=== PATIENT | male | born 1975 | race Hispanic/Latino ===

== ENCOUNTER 2019-01-26 09:11 | Emergency (ER) | payer OTHER | END 2019-01-26 09:37 | disposition home or self-care (01) | LOC: EDH 09:11 | DX: K64.0 First degree hemorrhoids (principal) ==

== ENCOUNTER 2023-01-17 11:08 | Emergency (ER) | payer OTHER ==
[~2023-01-17] VITALS: Ht 180.3 cm; Wt 108.9 kg
[2023-01-17] MEDS ORDERED: ONDANSETRON 4MG INJ IVP ONE (11:30)
[2023-01-17] MEDS ORDERED: 0.9%NACL 1000ML 1,000 ML IV ONE (11:30)
[2023-01-17 11:39] LABS: BASOPHILS % (AUTO) 0.4 % (0.0-5.0); EOSINOPHILS % (AUTO) 0.7 % (0.0-8.0); HEMATOCRIT 46.4 % (42-54); LYMPHOCYTES % (AUTO) 11.7 % (21.0-51.0); MEAN CORPUSCULAR HEMOGLOBIN 33.2 pg (27.0-33.0); MEAN CORPUSCULAR VOLUME 92.2 fL (79-99); MONOCYTES % (AUTO) 4.5 % (3.0-13.0); PLATELET COUNT (AUTO) 169 K/uL (130-400); RED BLOOD CELL COUNT(AUTO) 5.03 MIL/uL (4.50-6.20); RED CELL DISTRIBUTION WIDTH 12.3 % (11.0-15.5); WHITE BLOOD COUNT (AUTO) 13.6 K/uL (4.8-10.8)
[2023-01-17 11:47] LABS: CREATININE 0.9 mg/dL (0.5-1.5); POTASSIUM 4.1 mmol/L (3.5-5.1)
[2023-01-17 11:51] LABS: ALBUMIN 3.9 g/dL (3.5-5.0); APPEARANCE,URINE CLEAR (CLEAR); BILIRUBIN,URINE NEGATIVE (NEGATIVE); COLOR,URINE YELLOW (YELLOW); GLUCOSE, URINE (UA) >=1000 mg/dL (NEGATIVE); KETONES,URINE 10 mg/dL (NEGATIVE); LEUKOCYTE ESTERASE ,URINE 75 Leu/uL (NEGATIVE); NITRATE,URINE NEGATIVE (NEGATIVE); OCCULT BLOOD,URINE NEGATIVE (NEGATIVE); PROTEIN,URINE 50 mg/dL (NEGATIVE); TOTAL PROTEIN, SERUM 7.2 g/dL (6.0-8.3); UROBILINOGEN,URINE 0.2 mg/dL (0.2-1.0)
[2023-01-17 11:54] LABS: MUCUS,URINE RARE LPF (None Seen); SQUAMOUS EPITHELIAL CELL,UR RARE /HPF (0-2)
[2023-01-17] MEDS ORDERED: IOHEXOL-350 75 ML VIAL IV ONE (12:13)
[2023-01-17] MEDS ORDERED: UBID100C4 PO (12:17)
[2023-01-17] MEDS ORDERED: ROSU10TA28 PO (12:17)
[2023-01-17] MEDS ORDERED: GLIP10TA9 PO (12:17)
[2023-01-17] MEDS ORDERED: THIO300C PO (12:17)
[2023-01-17] MEDS ORDERED: SITA50TA PO (12:17)
== END 2023-01-17 14:25 | disposition home or self-care (01) ==
LOC: EDH 11:08
DX: R10.9 Unspecified abdominal pain (principal); R11.0 Nausea; R68.83 Chills (without fever); E11.9 Type 2 diabetes mellitus without complications; Z20.822 Contact with and (suspected) exposure to COVID-19; Z79.899 Other long term (current) drug therapy
CPT/HCPCS: 99284; 74177; 96374; 71045; 87635; 96361; 84484; 80053; 83690; 85025; 87088; 87880; 87804 ×2; 83605; 81001; 36415; 93005; C9803; J7030; J2405; Q9967

== ENCOUNTER 2024-12-04 12:04 | Emergency (ER) | payer OTHER ==
[~2024-12-04] VITALS: Ht 180.3 cm; Wt 117.9 kg
[~2024-12-04 12:04] MED LIST: GLIP10TA16 PO; ROSU10TA72 PO; SITA50TA PO; THIO300C PO; UBID100C4 PO
[2024-12-04 13:10] LABS: BASOPHILS # (AUTO) 0.04 K/uL (0.00-0.20); BASOPHILS % (AUTO) 0.6 % (0.0-5.0); EOSINOPHILS # (AUTO) 0.07 K/uL (0.00-0.70); HEMATOCRIT 44.3 % (42-54); IMMATURE GRANULOCYTE ABSOLUTE 0.03 K/uL (0-1); LYMPHOCYTES # (AUTO) 1.8 K/uL (1.0-4.8); LYMPHOCYTES % (AUTO) 25.2 % (21.0-51.0); MEAN CORPUSCULAR HGB CONC 36.3 g/dL (32.0-36.0); MEAN CORPUSCULAR VOLUME 93.5 fL (79-99); MONOCYTES # (AUTO) 0.4 K/uL (0.1-1.0); MONOCYTES % (AUTO) 5.7 % (3.0-13.0); NEUTROPHILS # (AUTO) 4.7 K/uL (1.8-7.7); NEUTROPHILS % (AUTO) 67.1 % (40.0-77.0); PLATELET COUNT (AUTO) 187 K/uL (130-400); RED BLOOD CELL COUNT(AUTO) 4.74 MIL/uL (4.50-6.20); RED CELL DISTRIBUTION WIDTH 12.1 % (11.0-15.5)
--- NOTE | 2024-12-04 13:17 | HMCIMG ---
CT HEAD WITHOUT CONTRAST INDICATION: Facial droop TECHNIQUE: Noncontrast axial helical CT images from the vertex through the skull base using 5 mm slice thickness without contrast material. CT was performed with one or more of the following dose reduction techniques: Automated exposure control, adjustment of the mA and/or kV according to patient size, or use of iterative reconstruction technique. COMPARISON: None FINDINGS: The cerebral and cerebellar hemispheres are age-appropriate in appearance. No evidence for abnormal extra-axial fluid collections or masses. The ventricles and sulci are normal in size and configuration. No evidence for intracranial parenchymal, epidural, or subdural hemorrhage, mass effect or midline shift. The gregorio-white matter differentiation is well preserved. No secondary evidence to suggest acute ischemia. The brainstem and cerebellum appear normal. The visualized orbits appear unremarkable. The visible paranasal sinuses and mastoid air cells are clear. The calvarium appears normal. IMPRESSION: No acute intracranial process identified.
[2024-12-04 13:19] LABS: CREATININE 1.1 mg/dL (0.5-1.3); POTASSIUM 3.7 mmol/L (3.5-5.1)
--- NOTE | 2024-12-04 13:55 | ERN ---
General Chief Complaint: Numbness Stated Complaint: NUMBNESS TO FACE,BLURRY VISION RT EYE Time Seen by MD: 12:10 Time Seen by Midlevel: 12:10 Source: patient History of Present Illness Initial Comments The patient is a 49-year-old male with a past medical history of type 2 diabetes presenting to the emergency department for evaluation of a right facial droop and right facial numbness that started on December 02, 2024 at approximately 5:00 p.m.. Patient states his symptoms initially started with a "strange taste" in his mouth. He was then unable to swish water inside his mouth. He noticed excessive tearing and blurred vision to the right eye. Today he reports an increase in facial droopiness so he decided to report to the ER for further evaluation. He denies any focal weakness to his upper extremities. He was still able to walk with a normal gait. Patient denies any other symptoms at this time. He does report being in the process of switching primary care doctors and has stopped taking his diabetes medication until he gets a 2nd opinion. Allergies: Coded Allergies: No Known Allergies (Unverified Allergy, Unknown, 01/26/19) Home Meds Active Scripts Acyclovir (Acyclovir) 800 Mg Tablet, 1 TAB PO 5XDAY for 7 Days, #35 TAB 0 Refills Prov:ABEL ROBERTS 12/04/24 Reported Medications Alpha Lipoic Acid (Alpha Lipoic Acid) 300 Mg Capsule, 300 MG PO DAILY, CAP 01/17/23 Ubidecarenone (Co Q10) 100 Mg Capsule, 100 MG PO DAILY, CAP 01/17/23 Rosuvastatin Calcium (Rosuvastatin Calcium) 10 Mg Tablet, 10 MG PO DAILY, TAB 01/17/23 Sitagliptin Phosphate (Januvia) 50 Mg Tablet, 50 MG PO DAILY, TAB 01/17/23 Glipizide (Glipizide) 10 Mg Tablet, 10 MG PO DAILY, TAB 01/17/23 Past Medical History Past Medical History: Diabetes-Type II Past Surgical History: None ROS Dictation CONSTITUTIONAL: Negative except for HPI HEAD/FACE: Negative except for HPI EENT: Negative except for HPI RESPIRATORY: Negative except for HPI GASTROINTESTINAL/ABDOMINAL: Negative except for HPI GENITOURINARY: Negative except for HPI MUSCULOSKELETAL: Negative except for HPI INTEGUMENTARY: Negative except for HPI NEUROLOGICAL/PSYCH: Negative except for HPI HEMATOLOGIC/LYMPHATIC: Negative except for HPI All Systems Negative, Except as noted above. 13 point review of systems assessed and all negative except for above. Physical Exam Physical Exam Dictation Vital Signs reviewed General Appearance: Alert, oriented x 3, no acute distress, well developed, nourished. Head and Face: non-traumatic. Eyes: PERRL, pink conjunctivas, eyelid no trauma, anterior chamber with arcus senilis. Ears: Pinnas intact and no signs of trauma or erythema ear canals clear and no discharge TM no erythema Nose: No discharge, no bleeding. Oropharynx: Mouth normal, tongue pink, pharynx clear,no erythema, tonsils no exudates, no abscesses noted, mucous membrane moist Neck: Supple, non-tender, no thyromegaly, no masses, no JVD, no bruits Breast:Deferred Chest:No tenderness, no crepitus, no paradoxical movement, no retractions Lungs:Clear, well-ventilated, symmetric, no rales, no wheezing, no rhonchi, no stridor, good breath sounds bilaterally Heart: Regular rate, regular rhythm, no murmur, no gallops Vascular: no peripheral edema, Abdomen: Soft, positive bowel sounds, nondistended, no guarding, nontender, no rebound, no masses no hepatomegaly, no splenomegaly, no Ha's sign, no hernias. Rectal: Deferred Genital: Deferred Neurological: Normal speech, motor function intact, sensory function intact, right facial droop, 5/5 strength to bilateral upper and lower extremity, ambulatory with a normal gait, sensation is intact Musculoskeletal: Neck nontender, full range of motion, back nontender, full range of motion, Extremities: nontender, full range of motion Skin: Color pink, dry, no turgor, no rash, no lacerations, no abrasions, no contusions. Lymphatic: Deferred Results Laboratory and Microbiology Lab and Micro Result Laboratory Tests Test 12/04/24 12:56 12/04/24 15:29 White Blood Count 7.0 K/uL (4.8-10.8) Red Blood Count 4.74 MIL/uL (4.50-6.20) Hemoglobin 16.1 g/dL (14.0-18.0) Hematocrit 44.3 % (42-54) Mean Corpuscular Volume 93.5 fL (79-99) Mean Corpuscular Hemoglobin 34.0 pg (27.0-33.0) H Mean Corpuscular Hemoglobin Concent 36.3 g/dL (32.0-36.0) H Red Cell Distribution Width 12.1 % (11.0-15.5) Platelet Count 187 K/uL (130-400) Mean Platelet Volume 12.2 fL (7.5-10.5) H Immature Granulocyte % (Auto) 0.4 % (0-1) Neutrophils (%) (Auto) 67.1 % (40.0-77.0) Lymphocytes (%) (Auto) 25.2 % (21.0-51.0) Monocytes (%) (Auto) 5.7 % (3.0-13.0) Eosinophils (%) (Auto) 1.0 % (0.0-8.0) Basophils (%) (Auto) 0.6 % (0.0-5.0) Neutrophils # (Auto) 4.7 K/uL (1.8-7.7) Lymphocytes # (Auto) 1.8 K/uL (1.0-4.8) Monocytes # (Auto) 0.4 K/uL (0.1-1.0) Eosinophils # (Auto) 0.07 K/uL (0.00-0.70) Basophils # (Auto) 0.04 K/uL (0.00-0.20) Absolute Immature Granulocyte (auto 0.03 K/uL (0-1) Nucleated Red Blood Cells 0.0 % (0.0-0.19) Red Blood Cell Morphology See comments Sodium Level 135 mmol/L (136-145) L Potassium Level 3.7 mmol/L (3.5-5.1) Chloride Level 100 mmol/L (101-111) L Carbon Dioxide Level 29 mmol/L (21-32) Blood Urea Nitrogen 15 mg/dL (7-18) Creatinine 1.1 mg/dL (0.5-1.3) Glomerular Filtration Rate Calc 83 mL/min (>90) Random Glucose 404 mg/dL (70-105) *H Total Calcium 9.0 mg/dL (8.5-10.1) Whole Blood Glucose 257 MG/DL (70-110) H Labs Reviewed?: Yes MDM MDM: The patient is a 49-year-old male with a past medical history of type 2 diabetes presenting to the emergency department for evaluation of a right facial droop and right facial numbness that started on December 02, 2024 at approximately 5:00 p.m.. Patient states his symptoms initially started with a "strange taste" in his mouth. He was then unable to swish water inside his mouth. He noticed excessive tearing and blurred vision to the right eye. Today he reports an increase in facial droopiness so he decided to report to the ER for further evaluation. He denies any focal weakness to his upper extremities. He was still able to walk with a normal gait. Patient denies any other symptoms at this time. He does report being in the process of switching primary care doctors and has stopped taking his diabetes medication until he gets a 2nd opinion. Initial vital signs are remarkable for a temperature of 98.2. Heart rate of 83 beats per minute. Blood pressure stable at 140/84. O2 saturation is 98% on room air. On physical examination the patient has an obvious right facial droop with forehead involvement. Sensation is intact to face, upper extremities, and lower extremities. He has 5/5 strength to bilateral upper and lower extremities. Negative pronator drift. He was alert and oriented x4. Answering questions appropriately. Patient was able to ambulate from the lobby into the examination room with a normal gait. Symptoms are consistent with Eaton's palsy however head CT was ordered to rule out an acute intracranial abnormality. CBC shows no leukocytosis, no anemia, no thrombocytopenia. Chemistries reveal a glucose of 404. Sodium is 135 and chloride is 100. Anion gap is normal. The patient was not in DKA. Patient was given 1 L of IV fluids and 5 units of regular insulin. Repeat sugar trending downward. Patient will be discharged home. Differential diagnosis: Eaton's palsy, intracranial bleed, DKA There are no social concerns with this patient. Prescription drug management Prescriptions will include: Medical management and examination interpretation discussions were had by me with other qualified healthcare professionals as indicated for the patient's care. ED Course Orders Procedure Category Date Status Time Cbc With Differential LAB 12/04/24 Complete 12:16 Ct Head/Brain W/O CT 12/04/24 Resulted Contrast 12:16 12 Lead Ekg Tracing- EKG 12/04/24 Complete Technical 12:16 Basic Metabolic Panel LAB 12/04/24 Complete 12:16 0.9%Nacl 1000ml (Ns PHA 12/04/24 Complete 1000ml) 13:30 Insulin Regular, PHA 12/04/24 Complete Human 3ml (Humulin R 13:30 Bedside Glucose CPOE 12/04/24 Transmitted Fingerstick 14:37 Current Medications Medications (Trade) Dose Ordered Sig/Melody Route PRN Reason Start Time Stop Time Status Last Admin Dose Admin Insulin Human Regular (humuLIN R 100 UNIT/ML 3ML) 5 unit ONCE ONCE IV 12/04/24 13:30 12/04/24 13:31 DC 12/04/24 13:58 Sodium Chloride 1,000 ml @ 0 mls/hr ONCE ONCE IV 12/04/24 13:30 12/04/24 13:31 DC 12/04/24 13:56 Vital Signs Date Time Temp Pulse Resp B/P (MAP) Pulse Ox O2 Delivery O2 Flow Rate FiO2 12/04/24 16:03 98.2 80 14 132/80 98 Room Air* 0 21 12/04/24 13:27 98.2 83 14 140/84 98 Room Air* 0 21 12/04/24 12:20 98.2 83 14 140/84 98 Room Air* 0 21 12/04/24 12:05 98.2 83 14 140/84 98 Room Air [address] [address] IMAGING REPORT Signed PATIENT: RADHA TORRES JR MR#: [id number] : 1975 SEX: M AGE: 49 LOCATION: [facility] ORDER STATUS: REG ER REPORT#: [id number] SERVICE REASON: facial droop ORDERING PHYSICIAN: ABEL ROBERTS PROCEDURE: HEAD WO - CT HEAD/BRAIN W/O CONTRAST CT HEAD WITHOUT CONTRAST INDICATION: Facial droop TECHNIQUE: Noncontrast axial helical CT images from the vertex through the skull base using 5 mm slice thickness without contrast material. CT was performed with one or more of the following dose reduction techniques: Automated exposure control, adjustment of the mA and/or kV according to patient size, or use of iterative reconstruction technique. COMPARISON: None FINDINGS: The cerebral and cerebellar hemispheres are age-appropriate in appearance. No evidence for abnormal extra-axial fluid collections or masses. The ventricles and sulci are normal in size and configuration. No evidence for intracranial parenchymal, epidural, or subdural hemorrhage, mass effect or midline shift. The gregorio-white matter differentiation is well preserved. No secondary evidence to suggest acute ischemia. The brainstem and cerebellum appear normal. The visualized orbits appear unremarkable. The visible paranasal sinuses and mastoid air cells are clear. The calvarium appears normal. IMPRESSION: No acute intracranial process identified. DICTATED BY: LANE NGUYEN MD DATE: 12/04/24 1314 ELECTRONICALLY SIGNED BY: LANE NGUYEN MD DATE: 12/04/24 1317 DX & DISP Disposition: Discharge Departure Impression: Primary Impression: Eaton's palsy Additional Impression: Uncontrolled diabetes mellitus with hyperglycemia Condition: Stable Scripts Acyclovir (Acyclovir) 800 Mg Tablet 1 TAB PO 5XDAY for 7 Days, #35 TAB 0 Refills Prov: ABEL ROBERTS 12/04/24 Additional Instructions: Your physical examination today is consistent with Eaton's palsy. Given that your right side of the face is weak you need to protect your eye. You may use [id number] artificial tears every hour while awake to prevent a corneal abrasion. Your right eye should be taped shut at night to prevent a corneal abrasion. You may also wear an eye patch. Normally we treat this with high dose steroids and antiviral medication however given your history of uncontrolled diabetes I have opted to hold the steroids as this can increase your sugar. Your CT scan of the head was negative for any acute intracranial bleed. Your blood work today showed a sugar level of 404. You were given 1 L of IV fluids along with 5 units of regular insulin IV. Repeat glucose in the emergency department was 257. Please follow up with your primary care doctor in 2-3 days for repeat evaluation. Return to the ER if you develop any new or worsening symptoms Referrals: SELF,REFERRAL (PCP) Time of Disposition: 15:51 I have reviewed the case, and I agree with, Diagnosis and Plan I performed the substantive portion of the visit. I have reviewed and personal ly made and approve the management plan that is documented in the note by myself or the BIANCA. I acknowledge for responsibility for the patient's management plan. ABEL ROBERTS Dec 04, 2024 13:55
[2024-12-04] MEDS: 0.9%NACL 1000ML 1,000 ML IV ONE (13:56)
[2024-12-04] MEDS: INSULIN humuLIN R 100 UNIT/ML 3ML IV ONE (13:58)
--- NOTE | 2024-12-04 15:30 | NUR ---
BG 257
[2024-12-04] MEDS ORDERED: ACYC-138 PO (15:47)
[2024-12-04 16:03] VITALS: BP 132/80; PULSE 80; RESP 14; TEMP 98.2; O2SAT 98
--- NOTE | 2024-12-04 16:37 | EKG ---
[facility] Test Date: 2024-12-04 Test Time: 12:44:39 Pat Name: RADHA TORRES Department: ED Room: Gender: M Bushler: student : 1975 Requested By: ABEL ROBERTS Order Number: [id number] Reading MD: Kenneth Carmona Measurements Intervals [place] Rate: 70 P: 62 AL: 164 QRS: -43 QRSD: 107 T: 16 QT: 387 QTc: 419 Interpretive Statements Sinus rhythm Left axis deviation Compared to ECG 01/17/2023 11:36:37 Left-axis deviation now present Electronically Signed On 12-05-2024 13:35:17 CDT by Kenneth Carmona Please click the below link to view image of tracing.
== END 2024-12-04 16:05 | disposition home or self-care (01) ==
LOC: EDH 12:04
DX: G51.0 Bell's palsy (principal); E11.65 Type 2 diabetes mellitus with hyperglycemia; Z79.84 Long term (current) use of oral hypoglycemic drugs; Z79.899 Other long term (current) drug therapy
CPT/HCPCS: 99285; 96374; 70450; 80048; 85025; 82948; 36415; 93005; J1815; J7030